=== PATIENT | female | born 2000 | race Caucasian/White ===

== ENCOUNTER → 2024-09-24 08:58 | Outpatient (REF) | payer OTHER, SELFPAY | LOC: PNTC 08:58 | PROVIDERS: ATTENDING PHYSICIAN Student in an Organized Health Care Education/Training Program | DX: O43.119 Circumvallate placenta, unspecified trimester (principal); Q27.0 Congenital absence and hypoplasia of umbilical artery | CPT/HCPCS: 59025 ==

== ENCOUNTER → 2024-10-01 08:59 | Outpatient (REF) | payer OTHER, SELFPAY | LOC: PNTC 08:59 | PROVIDERS: ATTENDING PHYSICIAN Student in an Organized Health Care Education/Training Program | DX: O43.119 Circumvallate placenta, unspecified trimester (principal); O69.5XX0 Labor and delivery complicated by vascular lesion of cord, not applicable or unspecified | CPT/HCPCS: 59025 ==

== ENCOUNTER → 2024-10-08 09:38 | Outpatient (REF) | payer OTHER, SELFPAY | LOC: PNTC 09:38 | PROVIDERS: ATTENDING PHYSICIAN Student in an Organized Health Care Education/Training Program | DX: O69.5XX0 Labor and delivery complicated by vascular lesion of cord, not applicable or unspecified (principal); O43.119 Circumvallate placenta, unspecified trimester | CPT/HCPCS: 59025 ==

== ENCOUNTER 2024-10-16 07:07 | Inpatient (IN) | payer OTHER, SELFPAY ==
[2024-10-16 07:20] VITALS: BP 162/93; BMI 26.7
[2024-10-16] MEDS: LR 1000 IV ×4 (07:58→15:10)
[2024-10-16 08:11] LABS: % Basophils 0.2 % (0-2); % Eosinophils 0.2 % (0-6); % Immature Granulocytes 0.7 % (0-0.5); % Lymphocytes 13.4 % (20.5-51.1); % Monocytes 7.9 % (1.7-9.3); % Neutrophils 77.6 % (42.2-75.2); Absolute Immature Granulocytes 0.1 10^3/uL (0-0.05); Absolute Lymphocytes 1.4 10^3/uL (1.2-3.4); Absolute Monocytes 0.8 10^3/uL (0.1-0.6); Absolute Neutrophils 8.3 10^3/uL (1.4-6.5); Hematocrit 28.5 % (37.0-47.0); Hemoglobin 9.5 g/dL (12.0-16.0); Mean Corp Hgb Conc. 33.3 g/dL (33.0-37.0); Mean Corpuscular Hgb 27.5 pg (27.0-31.0); Mean Corpuscular Volume 82.4 fL (81.0-99.0); Mean Platelet Volume 11.4 fL (7.4-10.4); Nucleated Red Blood Cells % 0 %; Platelet Count 177 10^3/uL (130-400); Red Blood Cell Count 3.46 10^6/uL (4.20-5.40); Red Cell Dist. Width 14.4 % (11.5-14.5); White Blood Cell Count 10.6 10^3/uL (4.8-10.8)
[2024-10-16 08:28] LABS: ALT (SGPT) 15 U/L (0-35); AST (SGOT) 18 U/L (14-36); Albumin 3.2 g/dl (3.5-5.0); Alkaline Phosphatase 204 U/L (38-126); Blood Urea Nitrogen 15 mg/dl (7-17); Calcium 8.8 mg/dl (8.4-10.2); Carbon Dioxide 22 mmol/L (22-30); Chloride 106 mmol/L (98-107); Estimated Creatinine Clearance > 125 ml/min; Glucose 69 mg/dl (70-99); Potassium 4.2 mmol/L (3.5-5.1); Sodium 135 mmol/L (135-145); Total Bilirubin 0.4 mg/dl (0.2-1.3); Total Protein 6.1 g/dl (6.3-8.2); eGFR > 60.00
[2024-10-16 10:17] LABS: Protein/creatinine Ratio 0.3; Urine Protein 41 mg/dl
[2024-10-16] MEDS: PITOCIN 30 UNITS/NSS 500 ML IV (11:16)
[2024-10-16] MEDS: ZOFRAN 4 MG IV (13:03)
[2024-10-16] MEDS: STADOL 1 MG IV (13:26)
[2024-10-16] MEDS: SUBLIMAZE 100 MCG EPIDURAL (14:54)
[2024-10-16] MEDS: FENTANYL/BUPIVACAINE 100 EPIDURAL (14:54)
[2024-10-17 04:14] LABS: Hematocrit 24.3 % (37.0-47.0); Hemoglobin 8.1 g/dL (12.0-16.0)
[2024-10-17] MEDS: PRENATAL PLUS 1 TABLET PO (08:40)
[2024-10-17] MEDS: TYLENOL 650 MG PO ×3 (08:40→22:00)
[2024-10-17] MEDS: MOTRIN 600 MG PO ×3 (08:40→22:00)
[2024-10-17 10:53] LABS: Syphilis/T. pallidum Ab Reflex Negative (Negative)
[2024-10-17] MEDS: FEOSOL 325 MG PO (21:01)
[2024-10-18] MEDS: MOTRIN 600 MG PO (04:49)
[2024-10-18] MEDS: TYLENOL 650 MG PO (04:50)
[2024-10-18] MEDS: FEOSOL 325 MG PO (08:05)
[2024-10-18] MEDS: PRENATAL PLUS 1 TABLET PO (08:05)
[2024-10-18 10:30] LABS: Hematocrit 27.3 % (37.0-47.0); Mean Corpuscular Hgb 27.4 pg (27.0-31.0); Mean Corpuscular Volume 83.2 fL (81.0-99.0); Mean Platelet Volume 10.9 fL (7.4-10.4); Platelet Count 176 10^3/uL (130-400); Red Blood Cell Count 3.28 10^6/uL (4.20-5.40); Red Cell Dist. Width 14.6 % (11.5-14.5)
[2024-10-18 10:48] LABS: ALT (SGPT) 17 U/L (0-35); AST (SGOT) 28 U/L (14-36); Albumin 2.9 g/dl (3.5-5.0); Alkaline Phosphatase 163 U/L (38-126); Blood Urea Nitrogen 7 mg/dl (7-17); Calcium 8.5 mg/dl (8.4-10.2); Carbon Dioxide 25 mmol/L (22-30); Chloride 108 mmol/L (98-107); Estimated Creatinine Clearance > 125 ml/min; Glucose 65 mg/dl (70-99); Sodium 136 mmol/L (135-145); Total Bilirubin 0.4 mg/dl (0.2-1.3); Total Protein 5.6 g/dl (6.3-8.2); eGFR > 60.00
== END 2024-10-18 11:37 | disposition home or self-care (01) | DRG 806 ==
LOC: LDRP 07:07
PROVIDERS: Obstetrics & Gynecology; Student in an Organized Health Care Education/Training Program; ADMITTING PHYSICIAN Obstetrics & Gynecology
PROC: 0HQ9XZZ Repair Perineum Skin, External Approach (ICD-10-PCS; 2024-10-16)
PROC: 10E0XZZ Delivery of Products of Conception, External Approach (ICD-10-PCS; 2024-10-16)
DX: O14.04 Mild to moderate pre-eclampsia, complicating childbirth (principal); O98.32 Other infections with a predominantly sexual mode of transmission complicating childbirth; Z37.0 Single live birth; O43.113 Circumvallate placenta, third trimester; O43.123 Velamentous insertion of umbilical cord, third trimester; O70.0 First degree perineal laceration during delivery; Z3A.39 39 weeks gestation of pregnancy; A60.09 Herpesviral infection of other urogenital tract
CPT/HCPCS: 88307; 36415; 80053; 82570; 84156; 85014; 85018; 85025; 85027; 86780; 86850; 86900; 86901